=== PATIENT | female | born 1965 | race Caucasian/White ===

== ENCOUNTER → 2016-11-29 | Outpatient (CLI) | payer BC ==
[~2016-11-29] MED LIST: CYMBALTA30 MG PO; CYTOMEL PO; KETOPROFEN PO; THYROID PO; ULTRAM PO; [UNRECOGNIZED DRUG - OTHER]
--- NOTE | ~2016-11-29 | ST ---
Unit #: [id number] #: [id number] Patient: MOISES CHASE [id number] [address] [address] [id number] O MR#: [id number] NAME: MOISES CHASE : 1965 SEX: F STUDY DATE/TIME: 11/29/2016 UNIT: [facility] ROOM: STUDY DESCRIPTION: Stress Test Attending Physician: Ronnie Cantu M.D. Referring Physician: Ronnie Cantu M.D. Primary Care Physician: David Eng M.D. CARDIOLOGY REPORT EXAM Exercise Cardiolite Stress Test REASON FOR EXAMINATION Chest tightness. DESCRIPTION Baseline EKG shows normal sinus rhythm with a rate of 73 beats/minute. The patient exercised on the treadmill according to Balwinder protocol for a total of 9 minutes 31 seconds. She achieved a work level of 10.10 METs. Resting heart rate was 73 beats per minute. Maximal heart rate was 139 beats per minute representing 82% of the max predicted heart rate. The patient's symptoms were shortness of breath and leg cramps. No arrhythmias were noted. The test was stopped due to fatigue and leg cramps. IMPRESSION 1. There were no ST-T wave changes. 2. The patient experienced no chest pain, some shortness of breath and leg cramps. 3. There were no arrhythmias. 4. Please correlate with Cardiolite imaging. Dictated by... Shawna Mcpherson A.P.R.N. for Ronnie Cantu M.D. AM/jaswinder TD: 11/29/2016 09:22 JOB #: [id number] Unit #: [id number] #: [id number] Patient: MOISES CHASE CARDIOLOGY REPORT Page 1 of 1 X Shawna Mcpherson APRN CARDIOLOGY REPORT
--- NOTE | ~2016-11-29 | TH ---
Unit #: [id number] #: [id number] Patient: MOISES CHASE [id number] [address] [address] [id number] O MR#: [id number] NAME: MOISES CHASE : 1965 SEX: F STUDY DATE/TIME: 11/29/2016 UNIT: [facility] ROOM: STUDY DESCRIPTION: EKG AND Imaging Attending Physician: Ronnie Cantu M.D. Referring Physician: Ronnie Cantu M.D. Primary Care Physician: David Eng M.D. CARDIOLOGY REPORT EXAM EKG and imaging portion of the exercise nuclear stress test INDICATION Chest pain. DESCRIPTION OF PROCEDURE AND FINDINGS The patient exercised on the treadmill according to the Balwinder protocol for 9 minutes and 31 seconds, achieved a workload of 83% of maximal age-predicted heart rate. There were no EKG changes up to the level of exercise and heart rate the patient achieved. The patient had good exercise tolerance, overall the EKG portion of the exercise nuclear stress test was felt to be suboptimal due to not achieving the target heart rate but overall there were no ischemic changes up to that level of exercise. NUCLAEAR PORTION: The patient's resting dose was 12 mCi, stress dose was 33.7 mCi. End-diastolic volume was 55 mL and systolic volume was 7 mL. Calculated EF at 87%. Perfusion images showed no significantly abnormal fixed or reversible defect. Gated images showed normal wall motion and hyperdynamic LV function with calculated EF of 87%. Raw images showed no significantly abnormal extracardiac uptake. IMPRESSION 1. Unremarkable nuclear portion of the exercise nuclear stress test with no fixed or reversible defect. 2. Hyperdynamic left ventricular function with normal wall motion. 3. Of note, the patient's heart rate was suboptimal at 83% of maximal age-predicted heart rate. If clinical suspicion for ischemia as still high then consider different imaging modality. Clinical correlation is needed. Dictated by.Albert. Reyes Dangelo M.D. BA/mikey TD: 11/30/2016 14:30 JOB #: [id number] Unit #: [id number] #: [id number] Patient: RENA,MOISES CARDIOLOGY REPORT Page 1 of 1 X CARDIOLOGY REPORT
--- NOTE | ~2016-11-29 | ST ---
Unit #: [id number] #: [id number] Patient: MOISES CHASE [id number] [address] [address] [id number] O MR#: [id number] NAME: MOISES CHASE : 1965 SEX: F STUDY DATE/TIME: 11/29/2016 UNIT: [facility] ROOM: STUDY DESCRIPTION: Attending Physician: Ronnie Cantu M.D. Referring Physician: Ronnie Cantu M.D. Primary Care Physician: Davdi Eng M.D. CARDIOLOGY REPORT EXAM EKG portion of exercise nuclear stress test. INDICATIONS Chest pain. FINDINGS Resting blood pressure was 142/68. Peak blood pressure was 202/70. Patient exercised on the treadmill according to the Balwinder protocol for 9 minutes and 31 seconds achieving a maximum heart rate of 139 beats per minute which represented 83% of maximal age-predicted heart rate. The patient's resting EKG showed normal sinus rhythm with no significant ST segment changes to suggest ischemia. The patient's peak EKG showed sinus tachycardia with no significant ST segment changes to suggest any ischemia. IMPRESSION 1. Suboptimal study due to not achieving at least 85% of the maximal age-predicted heart rate. 2. Up to the level of exercise and the level of heart rate the patient achieved, there were no EKG changes to suggest ischemia. 3. Good exercise tolerance and functional capacity. 4. Nuclear portion will be dictated separately. Dictated by... Luis Angel Hampton TD: 11/30/2016 08:51 JOB #: [id number] Unit #: [id number] #: [id number] Patient: MOISES CHASE CARDIOLOGY REPORT Page 1 of 1 X CARDIOLOGY REPORT
== END | disposition home or self-care (01) ==
LOC: CNUC 06:44
DX: R07.89 Other chest pain (principal); I10 Essential (primary) hypertension
CPT/HCPCS: 78452; 93017; A9500